=== PATIENT | female | born 1965 | race Caucasian/White ===

== ENCOUNTER 2018-06-29 12:20 | Outpatient (CLI) | payer MEDICARE ==
--- NOTE | 2018-06-29 15:15 | ULT ---
BILATERAL LOWER EXTREMITY ARTERIAL DOPPLER WITH SPECTRAL ANALYSIS AND COLOR FLOW EVALUATION: DATE: 06/29/2018. HISTORY: Abnormal ankle brachial indices. FINDINGS: Crockett scale, color flow, Doppler evaluation, and spectral analysis of the bilateral lower extremity ar terial vessels is performed with 2D imaging. There are triphasic waveforms seen throughout the bilat eral lower extremity arterial vessels. However, there is an elevated peak systolic velocity in the r ight common femoral artery which, although has a triphasic waveform, suggests the possibility of a si gnificant stenosis in the right common femoral artery. There is also a mildly elevated peak systolic velocity in the left common femoral artery, although to a lesser extent. There is asymmetric mildly increased peak systolic velocity in the right profunda femoral artery. Velocity measurements are ot herwise symmetric and within normal limits involving the remainder of the bilateral lower extremity a rterial vessels. IMPRESSION: Elevated peak systolic velocities in the bilateral common femoral arteries, and although there are tr iphasic waveforms, a significant stenosis involving either common femoral artery cannot be entirely e xcluded. Otherwise, triphasic waveforms and symmetric peak systolic velocities throughout the remain britany of the bilateral lower extremity arterial vessels. POS: MISHA
== END 2018-06-29 12:21 | disposition home or self-care (01) ==
LOC: ULT 12:20
PROVIDERS: ATTEND Family Medicine
DX: R94.39 Abnormal result of other cardiovascular function study (principal)
CPT/HCPCS: 93923

== ENCOUNTER 2021-01-22 09:55 | Outpatient (CLI) | payer MEDICARE ==
[2021-01-22] MEDS ORDERED: Iopamidol-370 76% 500 ML 1 ML ONE (10:28)
== END 2021-01-22 09:56 | disposition home or self-care (01) ==
LOC: BICCT 09:55
PROVIDERS: ATTEND Urology
DX: R31.29 Other microscopic hematuria (principal); R93.5 Abnormal findings on diagnostic imaging of other abdominal regions, including retroperitoneum; Z90.710 Acquired absence of both cervix and uterus
CPT/HCPCS: 74178; Q9967

== ENCOUNTER 2021-06-22 11:11 | Outpatient (CLI) | payer MEDICARE | END 2021-06-22 11:12 | disposition home or self-care (01) | LOC: BICMAMMO 11:11 | PROVIDERS: ATTEND Family Medicine | DX: Z12.31 Encounter for screening mammogram for malignant neoplasm of breast (principal); Z80.3 Family history of malignant neoplasm of breast | CPT/HCPCS: 77063; 77067 ==